=== PATIENT | male | born 1995 | race Hispanic/Latino ===

== ENCOUNTER 2020-08-15 05:30 | Emergency (ER) | payer SELFPAY ==
[2020-08-15] MEDS ORDERED: Ketorolac Tromethamine 30 MG/ML VIAL ONE (06:33)
[2020-08-15 06:36] LABS: Bilirubin Negative (Negative); Blood, Urine 3+ (Negative); Clarity Clear (Clear); Glucose, Urine (Dipstick) Normal (Negative); Ketone, Urine Negative (Negative); Leukocyte Negative Leu/uL (Negative); Nitrite Negative (Negative); Protein, Urine (Dipstick) 70 mg/dL (Neg-Trace); RBC/HPF Greater than 50 HPF (0-3); Specific Gravity, Urine 1.036 (1.002-1.036); Squamous Epithelial 0-3 HPF (0-3); Urobilinogen Normal mg/dL (Less than 2); WBC/HPF 0-3 HPF (0-3)
[2020-08-15 06:40] LABS: Anion Gap 15 mmol/L (10-20); BUN (Urea Nitrogen) 14 mg/dL (8.9-20.6); Calc. Creatinine Clearance 0 mL/min (70-130); Calcium 10.2 mg/dL (7.8-10.44); Carbon Dioxide 26 mmol/L (22-29); Chloride 102 mmol/L (98-107); Estimated GFR-MDRD 84; Glucose 107 mg/dL (70-105); Potassium 3.8 mmol/L (3.5-5.1); Sodium 139 mmol/L (136-145)
[2020-08-15 06:56] LABS: Bacteria/HPF 1+ HPF (None Seen)
[2020-08-15 06:57] LABS: Sperm/HPF 1+ HPF (None Seen)
--- NOTE | 2020-08-15 07:35 | CT ---
CT OF THE ABDOMEN AND PELVIS WITHOUT IV CONTRAST: INDICATION: History of left-sided flank pain. COMPARISON: None. FINDINGS: Lung bases are clear. The unopacified liver, pancreas, adrenal glands, and spleen reveal no acute abnormality. There is mi ld left hydronephrosis. There is a 3 mm stone within the proximal left ureter. The remainder of the left ureter appears clear. Right renal collecting system reveals no ureteral calculus or hydronephr osis. There is a normal retrocecal appendix. Unopacified large and small bowel appear within normal limits . The bladder is decompressed. The rectum and perirectal soft tissues are unremarkable-appearing. No definite acute osseous abnormality is evident. There is mild scattered degenerative and osteoarth ritic change, particularly involving the lower lumbar spine. IMPRESSION: A 3 mm proximal left ureteral calculus and mild left hydronephrosis. POS: BH
== END 2020-08-15 07:12 | disposition home or self-care (01) ==
LOC: ERS 05:30
DX: N13.2 Hydronephrosis with renal and ureteral calculous obstruction (principal); J45.909 Unspecified asthma, uncomplicated
CPT/HCPCS: 36415; 74176; 80048; 81003; 81015; 96372; J1885